=== PATIENT | male | born 1995 | race African-American/Black ===

== ENCOUNTER 2024-04-04 18:59 | Emergency (ER) | payer OTHER ==
[~2024-04-04] VITALS: Ht 177.8 cm; Wt 83.0 kg
[2024-04-04 19:01] VITALS: BP 124/64; RESP 20; TEMP 97.9; O2SAT 99
[2024-04-04 19:11] VITALS: PULSE 101
[2024-04-04] MEDS ORDERED: CHLORPROMAZINE HCL 25 MG TABLET PO ONE (19:30)
[2024-04-04] MEDS ORDERED: GABA-529 PO (19:34)
[2024-04-04] MEDS ORDERED: METO-293 PO (19:34)
[2024-04-04] MEDS: ACETAMINOPHEN 325MG TABLET PO ONE (20:23)
[2024-04-04] MEDS: GABAPENTIN 100MG CAPSULE PO ONE (20:23)
[2024-04-04] MEDS: METOCLOPRAMIDE HCL 10MG TABLET PO ONE (20:23)
== END 2024-04-04 20:25 | disposition home or self-care (01) ==
LOC: ER 18:59
DX: R06.6 Hiccough (principal)
CPT/HCPCS: 99283; J8597; Q0161

== ENCOUNTER 2024-07-18 09:20 | Emergency (ER) | payer MEDICAID ==
[~2024-07-18] VITALS: Ht 177.8 cm; Wt 70.0 kg
[~2024-07-18 09:20] MED LIST: GABA-529 PO; METO-293 PO
[2024-07-18 09:51] VITALS: O2SAT 99
[2024-07-18] MEDS: KETOROLAC 30MG/ML VIAL IM ONE (10:59)
[2024-07-18] MEDS: ACETAMINOPHEN 325MG TABLET PO ONE (11:00)
[2024-07-18 11:37] VITALS: BP 128/70; PULSE 97; RESP 18; TEMP 36.83628; O2SAT 99
== END 2024-07-18 11:38 | disposition home or self-care (01) ==
LOC: ER 09:50
DX: M25.552 Pain in left hip (principal)
CPT/HCPCS: 99283; 73502; 96372; J1885

== ENCOUNTER 2025-07-19 15:07 | Emergency (ER) | payer MEDICAID ==
[~2025-07-19] VITALS: Ht 175.3 cm; Wt 77.0 kg
[2025-07-19 15:17] VITALS: O2SAT 99
[2025-07-19 17:01] LABS: BASOPHILS % 0.5 % (0.0-2.0); EOSINOPHILS % 0.9 % (0.0-5.0); HEMATOCRIT. 43.7 % (42.0-52.0); HEMOGLOBIN. 14.5 g/dL (14.0-18.0); LYMPHOCYTES % 22.5 % (20.0-50.0); MEAN PLATELET VOLUME 8.3 fl (7.4-10.4); MONOCYTES % 8.6 % (2.0-8.0); NEUTROPHILS % 67.5 % (40.0-76.0); PLATELET 194 x1000/uL (130-400); RED BLOOD CELL COUNT 4.92 mill/uL (4.7-6.1); RED CELL DISTRIBUTION WIDTH 13.8 % (11.6-14.6)
[2025-07-19 17:12] LABS: INR 1.0
[2025-07-19 17:13] LABS: CREATININE 1.1 mg/dL (0.6-1.3); UREA NITROGEN BLOOD 7 mg/dL (9-23)
[2025-07-19 17:14] LABS: TROPONIN I HIGH SENSITIVITY 4 ng/L (3.0-53)
[2025-07-19 17:15] LABS: ASPARTATE AMINOTRANSFERASE 23 IU/L (<34)
[2025-07-19 17:16] LABS: BILIRUBIN TOTAL 0.5 mg/dL (0.1-1.0); PROTEIN TOTAL 7.8 g/dL (6.0-8.3)
[2025-07-19] MEDS: MAGNESIUM/ALUMINUM HYDROXIDE/SIMETHICONE 30ML UDC PO SCH (17:49)
[2025-07-19] MEDS: ONDANSETRON 4MG ODT PO SCH (17:50)
[2025-07-19] MEDS: FAMOTIDINE 20MG TABLET PO SCH (17:50)
[2025-07-19] MEDS ORDERED: FAMO-135 MT (18:18)
[2025-07-19] MEDS ORDERED: MAG355OR21 MT (18:18)
[2025-07-19 18:33] VITALS: BP 135/92; PULSE 76; RESP 18; TEMP 36.7; O2SAT 100
== END 2025-07-19 18:35 | disposition home or self-care (01) ==
LOC: ER 15:07
DX: K29.00 Acute gastritis without bleeding (principal); Z96.649 Presence of unspecified artificial hip joint; Z79.899 Other long term (current) drug therapy; R06.02 Shortness of breath
CPT/HCPCS: 99285; 71045; 80053; 83880; 83690; 85025; 85610; 84484; 36415; Q0162